=== PATIENT | male | born 1995 | race Hispanic/Latino ===

== ENCOUNTER 2017-11-27 13:29 | Emergency (ER) | payer BC ==
[~2017-11-27] VITALS: Ht 172.7 cm; Wt 65.8 kg
[2017-11-27] MEDS ORDERED: HYDROCODONE/APAP 10MG-325MG TAB PO ONE (13:30)
--- OUTSIDE RECORDS SUMMARY | 2017-11-27 13:32 | XMS REPORT | Clinical Summary ---
Author Author [facility] Address Unknown Phone Unavailable Care Team Providers Care [employer] Cook Apprentice Name Role Phone Alexus Kendall DO PCP Allergies No Known Allergies Current Medications Prescription Sig. Disp. Refills Start End Date Status Date omeprazole (PriLOSEC) 40 Take 1 capsule (40 mg 30 capsule 3 11/11/19 12/11/19 Active MG capsule total) by mouth daily for 18 18 30 days. Active Problems Not on file Encounters Date Type Specialty Care Team Description 11/17/2017 Telephone Family Medicine Tashia Kendall, DO 11/15/2017 Telephone Family Medicine Tashia Kendall, DO 11/10/2017 Office Visit Family Medicine Tashia Kendall, Epigastric pain (Primary Dx); Chest pain, unspecified type; Reactive depression; Anxiety after 11/26/2016 Family History Medical History Relation Name Comments Diabetes Mother Relation Name Status Comments Mother Social History Tobacco Use Types Packs/Day Years Used Date Current Some Day Smoker Smokeless Tobacco: Never Used Alcohol Use Drinks/Week oz/Week Comments Yes occasional Sex Assigned at Date Recorded Not on file Last Filed Vital Signs Vital Sign Reading Time Taken Blood Pressure 122/78 11/10/2017 2:42 PM CDT Pulse - - Temperature - - Respiratory Rate - - Oxygen Saturation - - Inhaled Oxygen - - Concentration Weight 63.5 kg (140 lb) 11/10/2017 2:42 PM CDT Height 170.2 cm (5' 7") 11/10/2017 2:42 PM CDT Body Mass Index 21.93 11/10/2017 2:42 PM CDT Plan of Treatment Health Maintenance Due Date Last Done Comments INFLUENZA VACCINE 03/16/2018 Results * ECG 12 lead (11/10/2017 2:08 PM) Component Value Ref Range Ventricular rate 70 Atrial rate 70 MA interval 160 QRSD interval 82 QT interval 374 QTC interval 403 P axis 1 73 QRS axis 1 88 T wave axis 73 EKG impression Normal sinus rhythm-Normal ECG-No previous ECGs available- Specimen Performing Laboratory [facility] [place] [address] [place] [address] after 11/26/2016 Insurance Payer Benefit Subscriber ID Type Phone Address Plan / Group BCBS BCBS xxxxxxxxxxxx PPO CHOICE PPO/SAMAN STRAUSS PPO
--- NOTE | 2017-11-27 14:46 | Diagnostic Imaging Report ---
KNEE RIGHT THREE VIEWS HISTORY: Fall. Pain COMPARISON: None available. FINDINGS: Bones: No acute displaced fracture. Osseous alignment is within normal limits. Joints: The joint spaces are well-maintained. Soft tissues: Possible trace suprapatellar joint effusion versus overlying artifact. IMPRESSION: No acute osseous abnormalities. Signed by: DR. Parminder Cole MD on 11/27/2017 2:43 PM
[2017-11-27 14:59] VITALS: BP 120/66
== END 2017-11-27 14:58 | disposition home or self-care (01) ==
LOC: ER 13:29
DX: S80.01XA Contusion of right knee, initial encounter (principal); W07.XXXA Fall from chair, initial encounter; Y93.E9 Activity, other interior property and clothing maintenance; Y92.003 Bedroom of unspecified non-institutional (private) residence as the place of occurrence of the external cause
CPT/HCPCS: 99283